=== PATIENT | female | born 1940 | race Caucasian/White ===

== ENCOUNTER 2020-01-11 09:22 | Inpatient (IN) | payer MEDICARE, OTHER ==
[~2020-01-11] VITALS: Ht 165.1 cm; Wt 77.3 kg
[~2020-01-11 09:22] MED LIST: DOCU100C40 PO; HYDR12.55 PO; LOSA25TA96 PO; POLY17PO36 PO
[2020-01-11] MEDS ORDERED: acetaminophen 325mg tablet PO STA (09:57)
[2020-01-11] MEDS ORDERED: methylPREDNISolone sod succ 125mg/2ml vial IV ONE (10:00)
[2020-01-11] MEDS ORDERED: normal saline 1000ML IV soln IV ONE (10:00)
[2020-01-11] MEDS ORDERED: CefTRIAXone 2gm/D5W 50ml 50 ML IV ONE (10:00)
[2020-01-11] MEDS ORDERED: ipratropium/albuterol 3ml nebule NEB ONE (10:00)
[2020-01-11] MEDS ORDERED: azithromycin/NS 500mg/250ml 250 ML IV ONE (10:00)
[2020-01-11 10:29] LABS: ALANINE AMINOTRANSFERASE 29 U/L (12-78); ALBUMIN 3.4 G/DL (3.4-5.0); ALKALINE PHOSPHATASE 69 IU/L (46-116); ANION GAP 11 (8-16); ASPARTATE AMINO TRANSFERASE 28 U/L (10-37); BILIRUBIN,TOTAL 1.1 MG/DL (0.1-1.0); BLOOD UREA NITROGEN 19 MG/DL (7-18); BUN/CREATININE RATIO 18.3 (6.6-38.0); CHLORIDE 84 MMOL/L (99-107); CREATININE 1.04 MG/DL (0.40-0.90); GLUCOSE 112 MG/DL (70-104); TOTAL PROTEIN 6.9 G/DL (6.4-8.2); eGFR 51 ML/MIN
[2020-01-11 10:31] LABS: SODIUM 117 MMOL/L (135-145)
[2020-01-11 10:32] LABS: POTASSIUM 2.3 MMOL/L (3.5-5.1)
[2020-01-11] MEDS ORDERED: potassium Cl 10 mEq/100mL bag IV ONE ×2 (10:40→11:20)
[2020-01-11 10:46] LABS: HEMATOCRIT 39.9 % (35.0-45.0); HEMOGLOBIN 14.1 g/dl (12.0-16.0); MEAN CORPUSCULAR HEMOGLOBIN 29.6 PG (27.0-31.0); MEAN CORPUSCULAR HGB CONC 35.3 g/dL (33.0-36.5); MEAN CORPUSCULAR VOLUME 83.8 FL (78-98); MEAN PLATELET VOLUME 7.8 FL (7.4-10.4); PLATELET COUNT 232 X10'3 (140-440); RED BLOOD COUNT 4.76 X10'6 (4.20-5.60); RED CELL DISTRIBUTION WIDTH 13.5 % (11.5-14.5); WHITE BLOOD COUNT 4.4 X10'3 (4.5-11.0)
[2020-01-11 10:54] LABS: BASOPHILS % (AUTO) 0.9 % (0-1); EOSINOPHILS % (AUTO) 0.5 % (0-6); LYMPHOCYTES # (AUTO) 0.9 X10'3 (1.1-4.8); LYMPHOCYTES % (AUTO) 19.8 % (21-51); MONOCYTES # (AUTO) 0.7 X10'3 (0-0.9); MONOCYTES % (AUTO) 16.7 % (2-12); NEUTROPHILS # (AUTO) 2.7 X10'3 (1.8-7.7); NEUTROPHILS % (AUTO) 62.1 % (42-75)
[2020-01-11 11:11] LABS: NUCLEATED RED BLOOD CELLS 1 /100WBC (0-0); TOTAL CELLS COUNTED 100
[2020-01-11 11:12] LABS: PLATELET ESTIMATE NORMAL
[2020-01-11] MEDS ORDERED: potassium Cl 10 mEq/100mL bag IV PRN (11:20)
[2020-01-11 12:06] LABS: CLARITY,URINE CLEAR (Clear); COLOR,URINE STRAW (Yellow); GLUCOSE, URINE NEGATIVE (Neg); KETONES,URINE NEGATIVE (Neg); LEUKOCYTE ESTERASE ,URINE NEGATIVE (Neg); NITRITES, URINE NEGATIVE (Neg); OCCULT BLOOD,URINE TRACE-INTACT (Neg); PROTEIN,URINE NEGATIVE (Neg); UROBILINOGEN,URINE 0.2 E.U/dL (0.2-1.0)
[2020-01-11 12:10] LABS: UA COLLECTION TYPE FOLEY CATH
[2020-01-11] MEDS: normal saline 1000ml 1,000 ML IV SCH ×3 (12:11→20:47)
[2020-01-11 12:15] LABS: BACTERIA,URINE NONE SEEN /HPF (Neg); RBC,URINE 0-2 /HPF (0-2); SQUAMOUS EPITHELIAL CELL,UR NONE SEEN /LPF (FEW); WBC,URINE 0-4 /HPF (0-4)
[2020-01-11] MEDS ORDERED: magnesium 2GM in 50ml NS 50 ML IV PRN (12:15)
[2020-01-11] MEDS ORDERED: potassium Cl 20 mEq SR tablet PO PRN (12:15)
[2020-01-11] MEDS ORDERED: magnesium 4gm in 100ml NS 100 ML IV PRN (12:15)
[2020-01-11] MEDS ORDERED: diphenhydrAMINE 50 mg/ml inj IV PRN (12:15)
[2020-01-11] MEDS ORDERED: mag hydrox/Alum hydrox/simeth 30ml oral suspension PO PRN (12:15)
[2020-01-11] MEDS ORDERED: morphine 2 MG/ML inj. syringe IV PRN ×2 (12:15)
[2020-01-11] MEDS ORDERED: magnesium Cl slow-release 64mg tablet PO PRN (12:15)
[2020-01-11] MEDS ORDERED: diphenhydrAMINE 25mg capsule PO PRN (12:15)
[2020-01-11] MEDS ORDERED: metoclopramide 5 mg/ml inj IV PRN (12:15)
[2020-01-11] MEDS ORDERED: potassium CL 10mEq/100ml bag 100 ML IV PRN ×2 (12:15)
[2020-01-11] MEDS ORDERED: bisacodyl 10mg suppository rectal RC PRN (12:15)
[2020-01-11] MEDS ORDERED: magnesium hydroxide 30ml (MOM) UD suspension PO PRN (12:15)
[2020-01-11] MEDS ORDERED: HYDROcodone/acetaminophen 5mg/325mg tablet PO PRN (12:15)
[2020-01-11] MEDS ORDERED: acetaminophen 650mg rectal suppository RC PRN (12:15)
[2020-01-11] MEDS ORDERED: ondansetron/PF 4mg/2ml inj IV PRN (12:15)
[2020-01-11] MEDS ORDERED: acetaminophen 325mg tablet PO PRN ×2 (12:15)
[2020-01-11] MEDS ORDERED: levoFLOXACIN-Levaquin 750MG/D5 150 ML IV SCH (12:25)
[2020-01-11] MEDS ORDERED: ipratropium/albuterol 3ml nebule NEB PRN (12:25)
[2020-01-11] MEDS ORDERED: LOSA100T57 PO (12:55)
[2020-01-11] MEDS ORDERED: METO100T14 PO (12:55)
[2020-01-11] MEDS ORDERED: HYDR25TA4 PO (12:55)
[2020-01-11] MEDS ORDERED: AMLO5TAB16 PO (12:55)
[2020-01-11] MEDS ORDERED: normal saline 1000ml 1,000 ML IV ONE ×2 (13:40→15:55)
--- NOTE | 2020-01-11 13:40 | NUR ---
Patient arrived on unit via gurney. Patient alert and oriented, able to communicate needs. Cooperative with care. C/o back pain. Will continue to monitor.
[2020-01-11 13:42] LABS: HEMOGLOBIN A1C 5.5 % (4.5-6.2)
[2020-01-11] MEDS ORDERED: iohexol 350MG/ML 100ml bottle IV ONE (13:43)
[2020-01-11 13:50] VITALS: BP 132/68
[2020-01-11] MEDS: ipratropium/albuterol 3ml nebule NEB SCH ×2 (14:00→21:54)
[2020-01-11 15:00] VITALS: BP 104/37
[2020-01-11] MEDS: HYDROcodone/acetaminophen 10/325mg tab PO PRN (15:16)
[2020-01-11] MEDS: potassium Cl 20 mEq SR tablet PO PRN ×2 (15:16→20:46)
[2020-01-11] MEDS: piperacillin/tazo 3.375gm/50ml 50 ML IV SCH ×2 (15:17→21:21)
[2020-01-11 15:25] LABS: ANION GAP 12 (8-16); CHLORIDE 93 MMOL/L (99-107); CREATININE 0.88 MG/DL (0.40-0.90); GLUCOSE 135 MG/DL (70-104); SODIUM 126 MMOL/L (135-145); TOTAL CARBON DIOXIDE 21.1 MMOL/L (24-32); eGFR 62 ML/MIN
[2020-01-11 15:26] LABS: BLOOD UREA NITROGEN 15 MG/DL (7-18)
[2020-01-11 15:37] LABS: POTASSIUM 2.3 MMOL/L (3.5-5.1)
--- NOTE | 2020-01-11 15:50 | NUR ---
Page sent to Dr. Fisher to notify of critical lab results PAGER ID: [phone] MESSAGE: re [id number] Liz Casarez Lactic 4.2 (up from 4.0) K+ 2.3, replacing per protocol. Thanks, Pauline [phone] Addendum: 01/11/20 at 1606 by Pauline Lanza RN New orders for NS 1 Liter bolus, repeat lactic 01/12/20 am and Magnesium 2gm IV x1.
[2020-01-11] MEDS ORDERED: magnesium 2GM in 50ml NS 50 ML IV ONE (15:55)
[2020-01-11] MEDS: pantoprazole 40 MG vial IV SCH (16:28)
[2020-01-11] MEDS: methylPREDNISolone sod succ 125mg/2ml vial IV SCH ×2 (16:28→20:46)
[2020-01-11 16:57] LABS: MAGNESIUM 1.4 MG/DL (1.5-2.4)
[2020-01-11 18:00] VITALS: BP 110/38
--- NOTE | 2020-01-11 18:40 | NUR ---
Problems reprioritized. Patient report given, questions answered & plan of care reviewed with TAE Mosley.
--- NOTE | 2020-01-11 19:07 | NUR ---
Patient in room PCU 3013. I have received report from Pauline STRONG and had the opportunity to ask questions and assume patient care.
[2020-01-11] MEDS: K and/or MAG REPLACEMENT MC SCH (20:00)
[2020-01-11] MEDS: heparin, porcine 5000 units/ml vial SQ SCH (20:45)
[2020-01-11 22:00] VITALS: BP 98/40
[2020-01-12] VITALS (7 sets, daily range): BP systolic 91–120; BP diastolic 35–46
[2020-01-12] MEDS: potassium Cl 20 mEq SR tablet PO PRN ×4 (00:41→20:43)
[2020-01-12] MEDS: methylPREDNISolone sod succ 125mg/2ml vial IV SCH ×4 (02:25→20:42)
--- NOTE | 2020-01-12 02:46 | NUR ---
Nursing bolus of 250mls NS given for BP of 100/35 and put patient's head down and legs propped up on pillows and will reassess BP once bolus is in.
--- NOTE | 2020-01-12 02:55 | NUR ---
BP now 109/37 s/p 250mls NS.
[2020-01-12] MEDS: ipratropium/albuterol 3ml nebule NEB SCH ×4 (03:45→21:05)
[2020-01-12] MEDS: normal saline 1000ml 1,000 ML IV SCH (04:47)
[2020-01-12] MEDS: piperacillin/tazo 3.375gm/50ml 50 ML IV SCH ×3 (04:48→20:43)
[2020-01-12 05:19] LABS: ALANINE AMINOTRANSFERASE 29 U/L (12-78); ALBUMIN/GLOBULIN RATIO 0.9 (1.1-1.5); ALKALINE PHOSPHATASE 58 IU/L (46-116); ANION GAP 14 (8-16); ASPARTATE AMINO TRANSFERASE 26 U/L (10-37); BILIRUBIN,TOTAL 0.8 MG/DL (0.1-1.0); BLOOD UREA NITROGEN 6 MG/DL (7-18); BUN/CREATININE RATIO 7.3 (6.6-38.0); CALCIUM 7.3 MG/DL (8.5-10.1); CHLORIDE 96 MMOL/L (99-107); CHOL/HDL RATIO 1.8 (0.00-4.99); CHOLESTEROL 115 MG/DL (0-200); CREATININE 0.82 MG/DL (0.40-0.90); GLUCOSE 143 MG/DL (70-104); HDL CHOLESTEROL 64 MG/DL (35-60); LDL CHOLESTEROL 42 MG/DL (50-100); SODIUM 128 MMOL/L (135-145); TOTAL CARBON DIOXIDE 18.1 MMOL/L (24-32); TOTAL PROTEIN 6.3 G/DL (6.4-8.2); TRIGLYCERIDES 33 MG/DL (20-135); eGFR 67 ML/MIN
[2020-01-12 05:20] LABS: BASOPHILS % (AUTO) 0.1 % (0-1); EOSINOPHILS % (AUTO) 0 % (0-6); HEMATOCRIT 37.4 % (35.0-45.0); LYMPHOCYTES # (AUTO) 0.5 X10'3 (1.1-4.8); LYMPHOCYTES % (AUTO) 8.1 % (21-51); MEAN CORPUSCULAR HEMOGLOBIN 29.6 PG (27.0-31.0); MEAN CORPUSCULAR HGB CONC 34.8 g/dL (33.0-36.5); MEAN PLATELET VOLUME 8.2 FL (7.4-10.4); MONOCYTES # (AUTO) 0.2 X10'3 (0-0.9); MONOCYTES % (AUTO) 2.4 % (2-12); NEUTROPHILS # (AUTO) 5.8 X10'3 (1.8-7.7); NEUTROPHILS % (AUTO) 89.4 % (42-75); PLATELET COUNT 207 X10'3 (140-440); RED CELL DISTRIBUTION WIDTH 13.6 % (11.5-14.5); WHITE BLOOD COUNT 6.5 X10'3 (4.5-11.0)
[2020-01-12 05:21] LABS: PHOSPHORUS 0.9 MG/DL (2.3-4.5); POTASSIUM 2.9 MMOL/L (3.5-5.1)
--- NOTE | 2020-01-12 05:26 | NUR ---
PAGER ID: [phone] MESSAGE: Patient Liz Casarez Rm [id number] Patient had critical K of 2.9 and Phos of 0.9. Will start K replacement per protocol but do not have orders for Phos replacement. Thank you! Melany STRONG ext. [phone]
--- NOTE | 2020-01-12 06:33 | NUR ---
Problems reprioritized. Patient report given, questions answered & plan of care reviewed with Pauline STRONG.
[2020-01-12] MEDS ORDERED: azithromycin/NS 500mg/250ml 250 ML IV SCH (08:00)
[2020-01-12] MEDS: heparin, porcine 5000 units/ml vial SQ SCH ×2 (08:08→20:42)
[2020-01-12] MEDS: pantoprazole 40 MG vial IV SCH (08:08)
[2020-01-12] MEDS: Neutra Phos packet PO SCH ×3 (08:11→20:43)
[2020-01-12] MEDS: K and/or MAG REPLACEMENT MC SCH ×2 (08:28→20:00)
[2020-01-12] MEDS ORDERED: potassium phosphate inj 30 MMOL in normal saline 500ml IV soln 500 ML IV SCH (09:25)
[2020-01-12] MEDS: sodium bicarbonate (8.4%) inj. 100 MEQ in dextrose 5%-water 1,000 ML IV SCH (10:25)
--- NOTE | 2020-01-12 12:20 | NUR ---
PAGER ID: [phone] MESSAGE: Re [id number] Liz Casarez Pt c/o burning in arm from potassium phosphate IV. IV stopped. K+ is currently being replaced PO per protocol. Also, has order for Neutro-Phos PO TID. Do you want to add anything else? Thanks, Pauline x [phone]
[2020-01-12] MEDS ORDERED: sodium phosphate inj. 30 MMOL in dextrose 5%-water 250 ML IV ONE (12:40)
[2020-01-12] MEDS: vancomycin/NS 1 GM ADD-VANTAGE 250 ML IV SCH (15:32)
--- NOTE | 2020-01-12 18:33 | NUR ---
Patient in room PCU 3013. I have received report from Pauline STRONG and had the opportunity to ask questions and assume patient care.
[2020-01-12] MEDS: lactobacillus rhamnosus 10,000 MMU CELLS/CAPSULE PO SCH (20:42)
[2020-01-13] MEDS: sodium bicarbonate (8.4%) inj. 100 MEQ in dextrose 5%-water 1,000 ML IV SCH ×3 (01:55→20:23)
[2020-01-13] MEDS: methylPREDNISolone sod succ 125mg/2ml vial IV SCH ×4 (01:55→20:23)
[2020-01-13 02:00] VITALS: BP 108/37
[2020-01-13] MEDS: ipratropium/albuterol 3ml nebule NEB SCH ×4 (03:23→20:46)
[2020-01-13] MEDS: piperacillin/tazo 3.375gm/50ml 50 ML IV SCH ×3 (04:52→20:23)
[2020-01-13 06:00] VITALS: BP 118/45
[2020-01-13 06:11] LABS: BASOPHILS % (AUTO) 0.3 % (0-1); EOSINOPHILS % (AUTO) 0 % (0-6); HEMATOCRIT 35.3 % (35.0-45.0); HEMOGLOBIN 12.6 g/dl (12.0-16.0); LYMPHOCYTES # (AUTO) 0.6 X10'3 (1.1-4.8); LYMPHOCYTES % (AUTO) 4.4 % (21-51); MEAN CORPUSCULAR HEMOGLOBIN 30.5 PG (27.0-31.0); MEAN CORPUSCULAR HGB CONC 35.7 g/dL (33.0-36.5); MEAN CORPUSCULAR VOLUME 85.4 FL (78-98); MEAN PLATELET VOLUME 8.4 FL (7.4-10.4); MONOCYTES # (AUTO) 0.4 X10'3 (0-0.9); NEUTROPHILS # (AUTO) 11.5 X10'3 (1.8-7.7); NEUTROPHILS % (AUTO) 92.3 % (42-75); PLATELET COUNT 160 X10'3 (140-440); RED BLOOD COUNT 4.13 X10'6 (4.20-5.60); RED CELL DISTRIBUTION WIDTH 13.9 % (11.5-14.5); WHITE BLOOD COUNT 12.5 X10'3 (4.5-11.0)
[2020-01-13 06:12] LABS: ALANINE AMINOTRANSFERASE 32 U/L (12-78); ALBUMIN 2.7 G/DL (3.4-5.0); ALBUMIN/GLOBULIN RATIO 0.8 (1.1-1.5); ALKALINE PHOSPHATASE 55 IU/L (46-116); ANION GAP 11 (8-16); BILIRUBIN,TOTAL 0.6 MG/DL (0.1-1.0); BLOOD UREA NITROGEN 9 MG/DL (7-18); BUN/CREATININE RATIO 11.5 (6.6-38.0); CALCIUM 6.7 MG/DL (8.5-10.1); CHLORIDE 100 MMOL/L (99-107); CREATININE 0.78 MG/DL (0.40-0.90); GLUCOSE 162 MG/DL (70-104); MAGNESIUM 1.9 MG/DL (1.5-2.4); SODIUM 132 MMOL/L (135-145); TOTAL CARBON DIOXIDE 21.3 MMOL/L (24-32); eGFR 71 ML/MIN
[2020-01-13 06:15] LABS: ASPARTATE AMINO TRANSFERASE 35 U/L (10-37); POTASSIUM 3.6 MMOL/L (3.5-5.1)
--- NOTE | 2020-01-13 06:29 | NUR ---
Problems reprioritized. Patient report given, questions answered & plan of care reviewed with Pauline STRONG.
[2020-01-13] MEDS: K and/or MAG REPLACEMENT MC SCH ×2 (08:00→20:00)
[2020-01-13] MEDS ORDERED: sodium phosphate inj. 30 MMOL in dextrose 5%-water 250 ML IV ONE (09:40)
[2020-01-13] MEDS: heparin, porcine 5000 units/ml vial SQ SCH ×2 (10:38→20:40)
[2020-01-13] MEDS: lactobacillus rhamnosus 10,000 MMU CELLS/CAPSULE PO SCH ×2 (10:38→20:23)
[2020-01-13] MEDS: azithromycin 250mg tablet PO SCH (10:38)
[2020-01-13] MEDS: pantoprazole 40mg Tablet.DR PO SCH (10:38)
[2020-01-13 11:00] VITALS: BP 100/47
[2020-01-13] MEDS: vancomycin/NS 1 GM ADD-VANTAGE 250 ML IV SCH (14:10)
[2020-01-13 15:00] VITALS: BP 100/47
[2020-01-13 18:00] VITALS: BP 97/42
--- NOTE | 2020-01-13 18:20 | NUR ---
Patient in room PCU 3013B. I have received report from Pauline Ford RN and had the opportunity to ask questions and assume patient care. Patient sitting up in chair at bedside, IV fluids infusing at ordered rate, visitors at bedside, no complaints at this time, will continue to monitor.
[2020-01-13 22:00] VITALS: BP 108/86
[2020-01-14] VITALS (15 sets, daily range): BP systolic 91–153; BP diastolic 44–76
[2020-01-14] MEDS: methylPREDNISolone sod succ 125mg/2ml vial IV SCH ×2 (01:40→08:14)
[2020-01-14] MEDS: ipratropium/albuterol 3ml nebule NEB SCH ×4 (02:43→20:47)
--- NOTE | 2020-01-14 02:45 | NUR ---
Patient placed on BiPAP and mobile monitor.
[2020-01-14] MEDS: piperacillin/tazo 3.375gm/50ml 50 ML IV SCH ×3 (05:33→20:05)
[2020-01-14 05:49] LABS: BASOPHILS % (AUTO) 0.1 % (0-1); EOSINOPHILS % (AUTO) 0 % (0-6); HEMATOCRIT 33.9 % (35.0-45.0); HEMOGLOBIN 12.1 g/dl (12.0-16.0); LYMPHOCYTES # (AUTO) 0.4 X10'3 (1.1-4.8); MEAN CORPUSCULAR HEMOGLOBIN 30.7 PG (27.0-31.0); MEAN CORPUSCULAR HGB CONC 35.8 g/dL (33.0-36.5); MEAN CORPUSCULAR VOLUME 85.8 FL (78-98); MEAN PLATELET VOLUME 8.1 FL (7.4-10.4); MONOCYTES # (AUTO) 0.4 X10'3 (0-0.9); MONOCYTES % (AUTO) 4.7 % (2-12); NEUTROPHILS # (AUTO) 7.3 X10'3 (1.8-7.7); NEUTROPHILS % (AUTO) 90.2 % (42-75); PLATELET COUNT 141 X10'3 (140-440); RED BLOOD COUNT 3.95 X10'6 (4.20-5.60); RED CELL DISTRIBUTION WIDTH 13.8 % (11.5-14.5); WHITE BLOOD COUNT 8.1 X10'3 (4.5-11.0)
[2020-01-14] MEDS: sodium bicarbonate (8.4%) inj. 100 MEQ in dextrose 5%-water 1,000 ML IV SCH (05:57)
--- NOTE | 2020-01-14 06:00 | NUR ---
Patient in room PCU 3013. I have received report from Yessenia STRONG and had the opportunity to ask questions and assume patient care.
[2020-01-14 06:05] LABS: ALANINE AMINOTRANSFERASE 31 U/L (12-78); ALBUMIN 2.7 G/DL (3.4-5.0); ALBUMIN/GLOBULIN RATIO 0.9 (1.1-1.5); ALKALINE PHOSPHATASE 49 IU/L (46-116); ANION GAP 6 (8-16); ASPARTATE AMINO TRANSFERASE 28 U/L (10-37); BILIRUBIN,TOTAL 0.4 MG/DL (0.1-1.0); BLOOD UREA NITROGEN 6 MG/DL (7-18); BUN/CREATININE RATIO 8.2 (6.6-38.0); CALCIUM 6.2 MG/DL (8.5-10.1); CHLORIDE 98 MMOL/L (99-107); CREATININE 0.73 MG/DL (0.40-0.90); GLUCOSE 173 MG/DL (70-104); MAGNESIUM 1.6 MG/DL (1.5-2.4); PHOSPHORUS 2.2 MG/DL (2.3-4.5); SODIUM 136 MMOL/L (135-145); TOTAL CARBON DIOXIDE 31.8 MMOL/L (24-32); TOTAL PROTEIN 5.6 G/DL (6.4-8.2); eGFR 77 ML/MIN
[2020-01-14 06:16] LABS: POTASSIUM 2.5 MMOL/L (3.5-5.1)
--- NOTE | 2020-01-14 06:25 | NUR ---
Critical lab paged to Dr. Rangel. PAGER ID: [phone] MESSAGE: Yessenia hurley [phone]. RE Mehran Casarez [id number]. Critical lab K 2.5. Patient has replacement ordered. Thanks!
--- NOTE | 2020-01-14 06:52 | NUR ---
Problems reprioritized. Patient report given, questions answered & plan of care reviewed with Mee STRONG.
[2020-01-14] MEDS: K and/or MAG REPLACEMENT MC SCH ×4 (08:00→20:00)
[2020-01-14] MEDS: lactobacillus rhamnosus 10,000 MMU CELLS/CAPSULE PO SCH ×2 (08:14→20:06)
[2020-01-14] MEDS: heparin, porcine 5000 units/ml vial SQ SCH (08:14)
[2020-01-14] MEDS: pantoprazole 40mg Tablet.DR PO SCH (08:15)
[2020-01-14] MEDS: azithromycin 250mg tablet PO SCH (08:15)
--- NOTE | 2020-01-14 08:37 | NUR ---
PAGER ID: [phone] MESSAGE: [id number] Emilia Casarez. Heart rate in 130s from 70s. Patient is having tremors. States there is fullness in throat. No c/o chest pain. Pls. advise. Carline Gilbert Addendum: 01/14/20 at 1053 by Carline Duncan RN PAGER ID: [phone] MESSAGE: [id number] Emilia Casarez. Diltiazem not given yet d/t SBP trending down. Rechecked x3. Left arm SBP 126, 94, 84. Right arm Manual BP 82/40. HR in 130s. Pls. advise. Carline Gilbert
[2020-01-14] MEDS ORDERED: sodium phosphate inj. 30 MMOL in dextrose 5%-water 250 ML IV ONE (09:00)
[2020-01-14] MEDS: potassium Cl 20 mEq SR tablet PO PRN ×3 (09:26→20:06)
[2020-01-14] MEDS ORDERED: diltiazem-NS 100mg/100ml 100 ML IV SCH (10:10)
[2020-01-14] MEDS ORDERED: diltiazem 5mg/ml 5ml inj. IV ONE (10:10)
[2020-01-14] MEDS ORDERED: amiodarone 150mg/dext, iso-os 100 ML IV ONE (11:10)
[2020-01-14] MEDS: amiodarone/D5 360MG/200ML BAG 200 ML IV SCH ×3 (12:05→23:18)
[2020-01-14] MEDS: apixaban 5mg tablet PO SCH ×2 (12:25→20:06)
[2020-01-14] MEDS ORDERED: potassium CL 10mEq/100ml bag 100 ML IV PRN (14:05)
--- NOTE | 2020-01-14 18:30 | NUR ---
Patient in room PCU 3013. I have received report from TAE Caban and had the opportunity to ask questions and assume patient care.
--- NOTE | 2020-01-14 18:59 | NUR ---
Problems reprioritized. Patient report given, questions answered & plan of care reviewed with Homero STRONG.
[2020-01-14] MEDS: methylPREDNISolone sod succ/PF 40mg inj. IV SCH (20:05)
[2020-01-15] VITALS (14 sets, daily range): BP systolic 83–167; BP diastolic 42–99
[2020-01-15] MEDS: ipratropium/albuterol 3ml nebule NEB SCH ×4 (02:21→21:13)
[2020-01-15 04:02] LABS: BASOPHILS % (AUTO) 0 % (0-1); EOSINOPHILS % (AUTO) 0 % (0-6); HEMATOCRIT 32.8 % (35.0-45.0); HEMOGLOBIN 11.3 g/dl (12.0-16.0); LYMPHOCYTES # (AUTO) 0.6 X10'3 (1.1-4.8); LYMPHOCYTES % (AUTO) 8.8 % (21-51); MEAN CORPUSCULAR HEMOGLOBIN 30.1 PG (27.0-31.0); MEAN CORPUSCULAR HGB CONC 34.5 g/dL (33.0-36.5); MEAN CORPUSCULAR VOLUME 87.1 FL (78-98); MEAN PLATELET VOLUME 8.2 FL (7.4-10.4); MONOCYTES # (AUTO) 0.5 X10'3 (0-0.9); MONOCYTES % (AUTO) 7.7 % (2-12); NEUTROPHILS # (AUTO) 5.7 X10'3 (1.8-7.7); NEUTROPHILS % (AUTO) 83.5 % (42-75); PLATELET COUNT 122 X10'3 (140-440); RED BLOOD COUNT 3.77 X10'6 (4.20-5.60); WHITE BLOOD COUNT 6.9 X10'3 (4.5-11.0)
[2020-01-15 04:14] LABS: ALANINE AMINOTRANSFERASE 38 U/L (12-78); ALBUMIN 2.7 G/DL (3.4-5.0); ALKALINE PHOSPHATASE 43 IU/L (46-116); ANION GAP 4 (8-16); ASPARTATE AMINO TRANSFERASE 30 U/L (10-37); BILIRUBIN,TOTAL 0.5 MG/DL (0.1-1.0); BLOOD UREA NITROGEN 5 MG/DL (7-18); BUN/CREATININE RATIO 6.6 (6.6-38.0); CALCIUM 6.3 MG/DL (8.5-10.1); CHLORIDE 100 MMOL/L (99-107); CREATININE 0.76 MG/DL (0.40-0.90); GLUCOSE 138 MG/DL (70-104); MAGNESIUM 1.4 MG/DL (1.5-2.4); PHOSPHORUS 2.4 MG/DL (2.3-4.5); POTASSIUM 3.3 MMOL/L (3.5-5.1); SODIUM 135 MMOL/L (135-145); TOTAL CARBON DIOXIDE 31.1 MMOL/L (24-32); TOTAL PROTEIN 5.5 G/DL (6.4-8.2); eGFR 73 ML/MIN
[2020-01-15] MEDS: piperacillin/tazo 3.375gm/50ml 50 ML IV SCH ×3 (05:59→20:33)
[2020-01-15] MEDS: potassium Cl 20 mEq SR tablet PO PRN ×3 (06:00→18:20)
[2020-01-15] MEDS: amiodarone/D5 360MG/200ML BAG 200 ML IV SCH ×4 (06:00→23:34)
--- NOTE | 2020-01-15 06:00 | NUR ---
Patient in room PCU 3013. I have received report from Laura STRONG and had the opportunity to ask questions and assume patient care.
--- NOTE | 2020-01-15 06:22 | NUR ---
Problems reprioritized. Patient report given, questions answered & plan of care reviewed with TAE Caban.
[2020-01-15] MEDS: K and/or MAG REPLACEMENT MC SCH ×4 (08:00→20:00)
[2020-01-15] MEDS: apixaban 5mg tablet PO SCH ×2 (09:16→20:33)
[2020-01-15] MEDS: pantoprazole 40mg Tablet.DR PO SCH (09:16)
[2020-01-15] MEDS: azithromycin 250mg tablet PO SCH (09:17)
[2020-01-15] MEDS: methylPREDNISolone sod succ/PF 40mg inj. IV SCH ×2 (09:17→20:33)
[2020-01-15] MEDS: lactobacillus rhamnosus 10,000 MMU CELLS/CAPSULE PO SCH ×2 (09:17→20:33)
[2020-01-15] MEDS ORDERED: magnesium 4gm in 100ml NS 100 ML IV PRN (11:10)
[2020-01-15] MEDS: HYDROcodone/acetaminophen 10/325mg tab PO PRN (11:36)
[2020-01-15] MEDS: magnesium Cl slow-release 64mg tablet PO PRN (11:36)
[2020-01-15] MEDS ORDERED: VANCOMYCIN LEVEL IV ONE (14:30)
[2020-01-15] MEDS ORDERED: digoxin 250mcg/ml 2ml ampule IV ONE ×2 (15:05→21:00)
[2020-01-15] MEDS: metoprolol tartrate 25mg tablet PO SCH (17:05)
--- NOTE | 2020-01-15 18:57 | NUR ---
Patient in room PCU 3013. I have received report from TAE POWERS and had the opportunity to ask questions and assume patient care.
--- NOTE | 2020-01-15 19:12 | NUR ---
Problems reprioritized. Patient report given, questions answered & plan of care reviewed with Laura STRONG.
[2020-01-16] VITALS: BP 121/65
[2020-01-16] MEDS: metoprolol tartrate 25mg tablet PO SCH ×2 (00:30→09:17)
[2020-01-16] MEDS: magnesium Cl slow-release 64mg tablet PO PRN ×2 (00:30→09:15)
[2020-01-16] MEDS ORDERED: amiodarone/D5 360MG/200ML BAG 200 ML IV SCH (00:39)
--- NOTE | 2020-01-16 01:00 | NUR ---
Amiodarone drip has been D/C 01/16/2020@0100 and patient will start Amiodarone PO BID.
[2020-01-16 02:00] VITALS: BP 130/45
[2020-01-16] MEDS ORDERED: digoxin 250mcg/ml 2ml ampule IV ONE (03:00)
[2020-01-16] MEDS: ipratropium/albuterol 3ml nebule NEB SCH ×2 (03:11→07:13)
[2020-01-16] MEDS: piperacillin/tazo 3.375gm/50ml 50 ML IV SCH (04:34)
--- NOTE | 2020-01-16 05:35 | NUR ---
Patient woke up confused saying, "I have to get dressed and go home, how did I get here?" I reoriented the patient and she started to remember she has been here for at least 2 days but still ask, "But why am I here, I don't remember why I have to be here. Does my family know I'm here?" I replied they have been visiting everyday she's been here. Per handoff report, the confusion started during day shift and the MD is aware and thinks it's early onset dementia.
[2020-01-16 06:00] VITALS: BP 122/49
--- NOTE | 2020-01-16 06:14 | NUR ---
Problems reprioritized. Patient report given, questions answered & plan of care reviewed with TAE Caban.
--- NOTE | 2020-01-16 06:29 | NUR ---
Patient in room PCU 3013. I have received report from Laura STRONG and had the opportunity to ask questions and assume patient care.
[2020-01-16 06:34] LABS: BASOPHILS % (AUTO) 0.1 % (0-1); EOSINOPHILS % (AUTO) 0 % (0-6); HEMATOCRIT 35.9 % (35.0-45.0); HEMOGLOBIN 12.3 g/dl (12.0-16.0); LYMPHOCYTES # (AUTO) 0.7 X10'3 (1.1-4.8); LYMPHOCYTES % (AUTO) 9.3 % (21-51); MEAN CORPUSCULAR HGB CONC 34.2 g/dL (33.0-36.5); MEAN CORPUSCULAR VOLUME 87.7 FL (78-98); MEAN PLATELET VOLUME 8.2 FL (7.4-10.4); MONOCYTES # (AUTO) 0.7 X10'3 (0-0.9); MONOCYTES % (AUTO) 9.8 % (2-12); NEUTROPHILS # (AUTO) 5.8 X10'3 (1.8-7.7); NEUTROPHILS % (AUTO) 80.8 % (42-75); PLATELET COUNT 139 X10'3 (140-440); WHITE BLOOD COUNT 7.2 X10'3 (4.5-11.0)
[2020-01-16 07:04] LABS: ALANINE AMINOTRANSFERASE 52 U/L (12-78); ALKALINE PHOSPHATASE 41 IU/L (46-116); ANION GAP 8 (8-16); ASPARTATE AMINO TRANSFERASE 38 U/L (10-37); BILIRUBIN,TOTAL 0.6 MG/DL (0.1-1.0); BLOOD UREA NITROGEN 6 MG/DL (7-18); BUN/CREATININE RATIO 7.9 (6.6-38.0); CALCIUM 6.9 MG/DL (8.5-10.1); CHLORIDE 97 MMOL/L (99-107); CREATININE 0.76 MG/DL (0.40-0.90); GLUCOSE 106 MG/DL (70-104); MAGNESIUM 1.6 MG/DL (1.5-2.4); PHOSPHORUS 1.5 MG/DL (2.3-4.5); POTASSIUM 4.5 MMOL/L (3.5-5.1); SODIUM 130 MMOL/L (135-145); TOTAL CARBON DIOXIDE 25.2 MMOL/L (24-32); eGFR 73 ML/MIN
[2020-01-16] MEDS ORDERED: sodium phosphate inj. 30 MMOL in dextrose 5%-water 250 ML IV ONE ×2 (07:25→10:35)
[2020-01-16] MEDS: K and/or MAG REPLACEMENT MC SCH ×2 (08:00)
[2020-01-16] MEDS ORDERED: lactose-reduced food (Ensure Enlive) - 237ml bottle PO SCH (08:00)
[2020-01-16] MEDS ORDERED: amiodarone 200mg tablet PO SCH (08:00)
[2020-01-16] MEDS: lactobacillus rhamnosus 10,000 MMU CELLS/CAPSULE PO SCH (09:15)
[2020-01-16] MEDS: apixaban 5mg tablet PO SCH (09:15)
[2020-01-16] MEDS: pantoprazole 40mg Tablet.DR PO SCH (09:15)
[2020-01-16] MEDS: methylPREDNISolone sod succ/PF 40mg inj. IV SCH (09:15)
[2020-01-16] MEDS ORDERED: magnesium 4gm in 100ml NS 100 ML IV ONE (10:35)
[2020-01-16] MEDS ORDERED: digoxin 125mcg (0.125mg) tablet PO SCH (10:40)
[2020-01-16 11:00] VITALS: BP 115/48
--- NOTE | 2020-01-16 14:59 | NUR ---
Per MD orders, patient stable for transfer to rehab. Report called to receiving nurse Chase SAMUELS. All belongings sent with patient. Discontinued mobil monitoring. Discontinued PIVs; cannulas intact. Riley catheter kept in place. Transferred to [facility] via wheelchair accompanied by [facility] personnel.
== END 2020-01-16 14:30 | DRG 871 ==
LOC: ER 09:22 → ED HOLD 12:11 → PCU 3S 13:40
PROVIDERS: ADMIT Family Medicine; ATTEND Family Medicine
PROC: BW241ZZ Computerized Tomography (CT Scan) of Chest and Abdomen using Low Osmolar Contrast (ICD-10-PCS; principal; 2020-01-11)
DX: A41.9 Sepsis, unspecified organism (principal); J18.9 Pneumonia, unspecified organism; J96.01 Acute respiratory failure with hypoxia; R65.21 Severe sepsis with septic shock; E43 Unspecified severe protein-calorie malnutrition; E87.1 Hypo-osmolality and hyponatremia; E87.2 Acidosis; M48.50XA Collapsed vertebra, not elsewhere classified, site unspecified, initial encounter for fracture; E87.6 Hypokalemia; M06.9 Rheumatoid arthritis, unspecified; M35.3 Polymyalgia rheumatica; E83.39 Other disorders of phosphorus metabolism; E83.42 Hypomagnesemia; E86.0 Dehydration; F03.90 Unspecified dementia, unspecified severity, without behavioral disturbance, psychotic disturbance, mood disturbance, and anxiety; G89.4 Chronic pain syndrome; I10 Essential (primary) hypertension; I48.91 Unspecified atrial fibrillation; K21.9 Gastro-esophageal reflux disease without esophagitis; M81.0 Age-related osteoporosis without current pathological fracture; Z96.653 Presence of artificial knee joint, bilateral; Z60.2 Problems related to living alone; M19.90 Unspecified osteoarthritis, unspecified site; W18.39XA Other fall on same level, initial encounter; Y93.89 Activity, other specified; Y92.89 Other specified places as the place of occurrence of the external cause; Y99.8 Other external cause status; Z66 Do not resuscitate; Z79.01 Long term (current) use of anticoagulants; Z82.0 Family history of epilepsy and other diseases of the nervous system; Z82.49 Family history of ischemic heart disease and other diseases of the circulatory system
CPT/HCPCS: 36415; 71045; 71275; 80048; 80053; 80061; 80162; 81001; 83036; 83605; 83735; 84100; 84145; 84439; 84443; 84484; 85025; 87040; 87081; 93306; 94640; 94760; 96365; 96375; 97116; 97161; 97530; 97535; 99291; C9113; G0378; J0282; J0456; J0696; J1160; J1644; J1956; J2543; J2920; J2930; J3370; J3475; J3480; J7030; J7040; J7060; Q9967